=== PATIENT | female | born 1925 | race Caucasian/White ===

== ENCOUNTER 2016-10-31 00:21 | Emergency (ER) | payer MEDICARE, OTHER ==
[~2016-10-31 00:21] MED LIST: ACETAMINOPHEN325 MG PO; ARTHRICREAM85 GM TOP; BENECALORI7.5 KCAL/1 PO; BYSTOLIC10 MG PO; CARDIZEM CD120 MG PO; CEFEPIME IV; COZAAR100 MG PO; COZAAR50 MG PO; DULCOLAX10 MG RC; ESTRACE42.5 GM VG; FEOSOL325 MG PO; FLONASE ALLER15.8 ML; FLORANEX TABLE1 EACH PO; FLUTICASONE PRO16 GM NS; HIPREX1000 MG PO; HYDROCODONE-APA1 TAB PO; KEPPRA750 MG PO; LUBRICATING PL1 EACH OU; METHENAMINE HIPP1 GM PO; MIRTAZAPINE7.5 MG PO; NYSTATIN1 EAC1 TOP; OXYTROL1 EACH TOP; PHOSPHATE ORAL45 ML RC; SENNA8.6 MG PO; SIMETHICONE80 MG PO; SINEMET 25-1001 EACH PO; TYLENOL325 MG PO; VITAMIN C500 M1 PO; VITAMIN D32000 UNI1 PO; XANAX0.25 MG PO; XYZAL5 MG PO; ZANTAC300 MG PO; ZOFRAN4 MG PO; [UNRECOGNIZED DRUG - OTHER] IV
== END 2016-10-31 02:45 | disposition home or self-care (01) ==
LOC: ER 00:21
DX: S50.01XA Contusion of right elbow, initial encounter (principal); S40.011A Contusion of right shoulder, initial encounter; S70.01XA Contusion of right hip, initial encounter; G20 Parkinson's disease; F32.9 Major depressive disorder, single episode, unspecified; I48.91 Unspecified atrial fibrillation; D64.9 Anemia, unspecified; Z88.0 Allergy status to penicillin; Z88.5 Allergy status to narcotic agent; Z88.1 Allergy status to other antibiotic agents; Z88.6 Allergy status to analgesic agent; Z79.899 Other long term (current) drug therapy; X58.XXXA Exposure to other specified factors, initial encounter
CPT/HCPCS: 73502-RT

== ENCOUNTER 2016-11-20 08:55 | Inpatient (IN) | payer MEDICARE, OTHER ==
--- NOTE | 2016-11-20 17:10 | NUR ---
1635 SHOPPING INSPECTOR COLBY SCHULER CALLED TO REPORT PATIENT HR IS IN THE 130'S AND HAS BEEN HIGH 160. PATIENT LAYINF IN BED WITH EYES CLOSED AT THIS TIME. [address] CARVALHO OF THE ABOVE AND HE GAVE ORDERS TO TRANSFER PATIENT TO ICU TO START ON A CARDIZEM DRIP PER PROTOCOL. 1650 REPORT GIVEN TO [facility] ICU FOR PATIENT TO TRANSFER TO THE ICU AT THIS TIME. 1700 PATIENT TRANSFERRED TO ICU VIA HOSPITAL BED. 1709 NOTIFIED MRS THOMAS THAT PATIENT WAS TRANFERRED TO ICU AND STARTED ON A CARDIZEM DRIP PER MD ORDERS. SHE VERBALIZED UNDERSTANDING.
--- NOTE | 2016-11-20 17:33 | NUR ---
1650: REPORT RECEIVED FROM ADRIAN VYAS RN ON [facility].
--- NOTE | 2016-11-20 17:33 | NUR ---
1705: PT ARRIVED ON FLOOR TO ROOM 200-2 VIA STRETCHER. PT ALERT TO SELF, NO S/SX OF DISTRESS NOTED.
--- NOTE | 2016-11-20 18:27 | NUR ---
FAMILY WAS AT BEDSIDE WHEN PATIENT WAS ADMITTED TO THE FLOOR ROOM 306. FAMILY WAS QUESTIONING WHY THE PATIENT HAD BRUISING ALONG HER RIGHT SIDE. THEY ASKED IF THE PATIENT HAD FALLEN? I TOLD THEM I HADN'T BEEN TOLD IN REPORT THAT THE PATIENT HAD FALLEN, THAT THE POA COULD CALL THE PRISON AND ASK. I CALLED THE PRISON AT THAT TIME TO ASK TO SPEAK WITH THE NURSE WHO WOULD NORMALLY TAKE CARE OF MRS. CABRERA. I SPOKE WITH KENNY MILLER WHO INFORMED ME THAT THE PATIENT HAD FALLEN 3 WEEKS AGO. THE FAMILY THEN CAME TO THE DESK TO INFORM US THAT THE PATIENT HAD A FRACTURE OF HER RIGHT ARM PER THE POA THAT THEY SPOKE TO MRS. THOMAS. I THEN CALLED TO INFORM DR CARVALHO OF THIS AND HE VERBALIZED THAT HE WASN'T AWARE OF ANY RECENT FRACTURES EITHER. I CALLED [facility] BACK AND SPOKE TO KENNY MILLER AND ASKED IF THE PATIENT HAD A FRACTURE. SHE REPORTED YES SHE DID, I THEN ASK HER TO FAX A COPY OF THE XRAY AND ASK IF THE PATIENTS R HIP OR ELBOW HAD BEEN XRAYED. SHE REPORTED NO. I CALLED DR CARVALHO BACK AND HE GAVE ORDERS TO XRAY RIGHT HIP AND ELBOW.
--- NOTE | 2016-11-24 16:45 | NUR ---
1615: PT TRANSFERRED TO [facility] VIA AIR MATTRESS. FAMILY MADE AWARE.
--- NOTE | 2016-11-24 16:45 | NUR ---
1540: REPORT GIVEN TO GABBY MARTINEZ RN ON [employer].
--- NOTE | 2016-11-24 16:54 | NUR ---
1640: REPORT RECIEVED FROM [employer] ASSOCIATE. 1645: PT TRANSFERED TO [facility] VIA BED, PT STABLE AT TIME OF TRANSFER, AM IN AGREEMENT WITH PREVIOUS ASSESSMENT, WILL CONTINUE TO MONITOR
[2016-11-25] MEDS ORDERED: MEGESTROL ACETA40 MG PO (10:55)
[2016-11-25] MEDS ORDERED: BUSPIRONE HCL5 MG PO (10:55)
[2016-11-25] MEDS ORDERED: SIMETHICONE80 MG PO (10:57)
[2016-11-25] MEDS ORDERED: KEPPRA750 MG PO (10:57)
[2016-11-25] MEDS ORDERED: NORCO 5-325 TA1 EACH PO (10:57)
[2016-11-25] MEDS ORDERED: BYSTOLIC10 MG PO (11:04)
[2016-11-25] MEDS ORDERED: ESTRACE42.5 GM VG (11:05)
[2016-11-25] MEDS ORDERED: OMEPRAZOLE20 MG PO (11:05)
[2016-11-25] MEDS ORDERED: FLUTICASONE PRO16 GM NS (11:05)
[2016-11-25] MEDS ORDERED: SENNA8.6 MG PO (11:05)
[2016-11-25] MEDS ORDERED: BENECALORI7.5 KCAL/1 PO (11:06)
[2016-11-25] MEDS ORDERED: LUBRICANT EYE D15 M1 OU (11:06)
[2016-11-25] MEDS ORDERED: PHOSPHATE ORAL45 ML RC (11:06)
[2016-11-25] MEDS ORDERED: DULCOLAX10 MG RC (11:07)
[2016-11-25] MEDS ORDERED: ASPIR 8181 MG PO (11:07)
[2016-11-25] MEDS ORDERED: ZOFRAN4 MG PO (11:07)
[2016-11-25] MEDS ORDERED: CARDIZEM CD120 MG PO (11:07)
[2016-11-25] MEDS ORDERED: CEFTRIAXONE1 GM IV (11:08)
--- NOTE | 2016-11-25 15:11 | NUR ---
1400: REPORT CALLED TO SHIVAM AT [facility], IV FLUSED WITH 10ML NORMAL SALINE, IV LEFT IN PLACE FOR USE AT [facility] HOME.
== END 2016-11-25 15:16 | DRG 872 ==
LOC: ER 08:55 → ICU 14:51 → MED 14:51 → ICU 17:00 → MED 11-24 16:15
PROVIDERS: ADMIT Internal Medicine
DX: A41.9 Sepsis, unspecified organism (principal); N39.0 Urinary tract infection, site not specified; N17.9 Acute kidney failure, unspecified; E44.0 Moderate protein-calorie malnutrition; E22.1 Hyperprolactinemia; S42.91XA Fracture of right shoulder girdle, part unspecified, initial encounter for closed fracture; B96.20 Unspecified Escherichia coli [E. coli] as the cause of diseases classified elsewhere; B96.89 Other specified bacterial agents as the cause of diseases classified elsewhere; I48.0 Paroxysmal atrial fibrillation; D69.6 Thrombocytopenia, unspecified; F41.9 Anxiety disorder, unspecified; G20 Parkinson's disease; F02.80 Dementia in other diseases classified elsewhere, unspecified severity, without behavioral disturbance, psychotic disturbance, mood disturbance, and anxiety; K21.9 Gastro-esophageal reflux disease without esophagitis; F32.9 Major depressive disorder, single episode, unspecified; Z68.21 Body mass index [BMI] 21.0-21.9, adult; Z66 Do not resuscitate; W19.XXXA Unspecified fall, initial encounter; K44.9 Diaphragmatic hernia without obstruction or gangrene; I27.2 Other secondary pulmonary hypertension; R76.11 Nonspecific reaction to tuberculin skin test without active tuberculosis; Z86.73 Personal history of transient ischemic attack (TIA), and cerebral infarction without residual deficits; G40.909 Epilepsy, unspecified, not intractable, without status epilepticus; G25.81 Restless legs syndrome; M51.36 Other intervertebral disc degeneration, lumbar region; G89.29 Other chronic pain; M54.5 Low back pain; Z87.440 Personal history of urinary (tract) infections; Z88.5 Allergy status to narcotic agent; Z88.1 Allergy status to other antibiotic agents; Z88.0 Allergy status to penicillin; Z88.8 Allergy status to other drugs, medicaments and biological substances; Z79.899 Other long term (current) drug therapy; Z82.49 Family history of ischemic heart disease and other diseases of the circulatory system; Z80.9 Family history of malignant neoplasm, unspecified; I12.9 Hypertensive chronic kidney disease with stage 1 through stage 4 chronic kidney disease, or unspecified chronic kidney disease; N18.9 Chronic kidney disease, unspecified; Z91.81 History of falling; B37.9 Candidiasis, unspecified
CPT/HCPCS: 36415; 73502-RT; 87502; 97162-GP; 97165; J0696; J1650

== ENCOUNTER 2016-11-20 08:55 | Emergency (ER) | payer MEDICARE, OTHER | END 2016-11-20 14:50 | disposition critical access hospital (66) | LOC: ER 08:55 | DX: N28.9 Disorder of kidney and ureter, unspecified (principal); F32.9 Major depressive disorder, single episode, unspecified; I48.91 Unspecified atrial fibrillation; I10 Essential (primary) hypertension; Z86.73 Personal history of transient ischemic attack (TIA), and cerebral infarction without residual deficits; Z79.899 Other long term (current) drug therapy; Z88.0 Allergy status to penicillin; Z88.1 Allergy status to other antibiotic agents; Z88.5 Allergy status to narcotic agent; Z88.8 Allergy status to other drugs, medicaments and biological substances | CPT/HCPCS: 36415; 51702; 87502; 96361; 96365 ==